=== PATIENT | female | born 1965 | race Caucasian/White ===

== ENCOUNTER 2021-01-10 19:50 | Observation (INO) ==
[2021-01-11] MEDS ORDERED: Naloxone 0.4 MG/ML INJ IVP PRN (01:13)
[2021-01-11] MEDS ORDERED: *HR* OxyCODONE Immed Rel 5 MG TABLET PO PRN (01:13)
[2021-01-11] MEDS ORDERED: *HR* Promethazine 25 MG/ML VIAL IM PRN (01:13)
[2021-01-11] MEDS ORDERED: Melatonin 3 MG TABLET PO PRN (01:13)
[2021-01-11] MEDS ORDERED: Acetaminophen 325 MG TABLET PO PRN (01:13)
[2021-01-11] MEDS ORDERED: Ondansetron 4 MG/2 ML VIAL IVP PRN (01:13)
[2021-01-11] MEDS ORDERED: Ringers Solution, Lactated 1,000 ML IVC SCH ×2 (01:15→08:45)
[2021-01-11] MEDS ORDERED: Perflutren Lipid Microsphere 1.3 ML in 0.9 % Sodium Chloride 8.7 ML IVP PRN (01:16)
[2021-01-11 01:54] LABS: Basophils # 0.1 K/mcL (0.0-0.2); Basophils % 0.6 %; Eosinophils # 0.1 K/mcL (0.0-0.6); Eosinophils % 0.3 %; Hematocrit 35.5 % (35.3-44.9); Hemoglobin 11.8 g/dL (11.5-15.4); Immature Granulocytes % 0.8 % (0-4); Lymphocytes # 1.6 K/mcL (0.6-4.6); Lymphocytes % 10.1 %; Mean Corpuscular HGB Conc 33.2 g/dL (31.6-35.5); Mean Corpuscular Volume 87.2 fL (83.0-100.0); Mean Platelet Volume 9.1 fL (9.4-12.4); Neutrophils # 13.2 K/mcL (1.6-8.9); Platelet Count 478 K/mcL (140-400); Red Blood Count 4.07 M/mcL (3.82-4.97); Red Cell Distribution Width 14.1 % (11.5-14.5); Segmented Neutrophils % 82.2 %; White Blood Count 16.1 K/mcL (4.3-11.1)
[2021-01-11 02:15] LABS: Alanine Aminotransferase 7 Units/L (7-52); Albumin 4.2 g/dL (3.5-5.7); Albumin/Globulin Ratio 1.4 (1.1-2.2); Alkaline Phosphatase 107 Units/L (34-104); Aspartate Amino Transferase 15 Units/L (13-39); BUN/Creatinine Ratio 22 (6-26); Bilirubin,Total 0.3 mg/dL (0.3-1.0); Blood Urea Nitrogen 42 mg/dL (6-20); Calcium 8.4 mg/dL (8.6-10.3); Carbon Dioxide 23 mEq/L (23-29); Chloride 92 mEq/L (98-107); Globulin 3.1 g/dL (2.4-3.5); Glucose 104 mg/dL (70-105); Magnesium 3.3 mg/dL (1.6-2.6); Osmolality,Calculated 275 (280-300); Phosphorous 4.2 mg/dL (2.7-4.5); Potassium 2.8 mEq/L (3.5-5.1); Sodium 127 mEq/L (136-145); Total Protein 7.3 g/dL (6.4-8.9); Troponin I < 0.03 ng/mL (< 0.04); eGFR For African Americans 32 (> 60); eGFR For Non-African Americans 27 (> 60)
[2021-01-11] MEDS: *HR* HYDROcodone/Acet 5/325 mg TABLET PO PRN ×2 (07:40→19:27)
[2021-01-11] MEDS ORDERED: 0.9 % Sodium Chloride w KCl 40 MEQ/1,000 ML MLS IVC SCH (08:45)
[2021-01-11 10:14] LABS: Calcium 8.4 mg/dL (8.6-10.3); Potassium 3.1 mEq/L (3.5-5.1)
[2021-01-11] MEDS ORDERED: SUMAtriptan succinate 50 MG TABLET PO PRN (12:47)
[2021-01-11] MEDS ORDERED: Potassium Chloride Elixir 20 MEQ/15 ML UDC PO SCH (13:00)
[2021-01-11] MEDS: Aspirin Enteric Coated 81 MG Tablet PO SCH (14:37)
[2021-01-11] MEDS ORDERED: Octreotide 50 MCG/ML INJ SQ SCH (15:00)
[2021-01-11] MEDS: Ringers Solution, Lactated 1,000 ML IVC SCH (17:04)
[2021-01-11] MEDS: Gabapentin 300 MG CAPSULE PO SCH (19:26)
[2021-01-11] MEDS ORDERED: Mirtazapine 15 MG TABLET PO SCH (21:00)
[2021-01-12] MEDS: Cyclosporine [Restasis] 1 EACH Droperette OP SCH ×2 (02:52→07:31)
[2021-01-12 04:00] LABS: Basophils # 0.1 K/mcL (0.0-0.2); Basophils % 0.7 %; Eosinophils # 0.1 K/mcL (0.0-0.6); Eosinophils % 1.6 %; Hematocrit 30.1 % (35.3-44.9); Immature Granulocytes % 0.9 % (0-4); Lymphocytes # 1.6 K/mcL (0.6-4.6); Lymphocytes % 23.9 %; Mean Corpuscular HGB Conc 31.9 g/dL (31.6-35.5); Mean Corpuscular Hemoglobin 28.7 pg (28.0-33.3); Mean Corpuscular Volume 89.9 fL (83.0-100.0); Mean Platelet Volume 9.2 fL (9.4-12.4); Monocytes # 0.5 K/mcL (0.0-1.3); Monocytes % 7.6 %; Platelet Count 379 K/mcL (140-400); Red Blood Count 3.35 M/mcL (3.82-4.97); Red Cell Distribution Width 14.2 % (11.5-14.5); Segmented Neutrophils % 65.3 %
[2021-01-12 04:06] LABS: Hemoglobin 9.6 g/dL (11.5-15.4); Neutrophils # 4.4 K/mcL (1.6-8.9); White Blood Count 6.8 K/mcL (4.3-11.1)
[2021-01-12 04:14] LABS: Calcium 8.1 mg/dL (8.6-10.3); Potassium 4.4 mEq/L (3.5-5.1)
[2021-01-12] MEDS: Aspirin Enteric Coated 81 MG Tablet PO SCH (07:30)
[2021-01-12] MEDS: Gabapentin 300 MG CAPSULE PO SCH (07:31)
[2021-01-12] MEDS ORDERED: Tiotropium 10 INH DOSE IH ONE (07:31)
[2021-01-12] MEDS: *HR* HYDROcodone/Acet 5/325 mg TABLET PO PRN (07:34)
[2021-01-12] MEDS: Ringers Solution, Lactated 1,000 ML IVC SCH ×2 (07:37)
[2021-01-12] MEDS ORDERED: Famotidine 20 MG TABLET PO SCH (09:00)
[2021-01-12] MEDS ORDERED: Folic Acid 1 MG TABLET PO SCH (09:00)
[2021-01-12] MEDS ORDERED: Cyanocobalamin (B-12) 1,000 MCG TABLET PO SCH (09:00)
[2021-01-12] MEDS ORDERED: Cholecalciferol (D-3) 1,000 UNIT (25MCG) TABLET PO SCH (09:00)
[2021-01-12] MEDS ORDERED: Venlafaxine XR (24 HR) 75 MG CAP.ER.24H PO SCH (09:00)
[2021-01-12] MEDS ORDERED: Tiotropium 10 INH DOSE IH SCH (10:00)
[2021-01-12 12:30] VITALS: BP 107/71; PULSE 64; TEMP 97.5; O2SAT 99
[2021-01-12] MEDS ORDERED: FLU Vac QV 21-22 (6Month+)/PF 0.5 ML SYRINGE IM ONE (14:21)
[2021-01-15] MEDS ORDERED: BUPRENORPHINE TP SCH (09:00)
== END 2021-01-12 15:20 | disposition home or self-care (01) ==
LOC: 3NENU → SUATTDRO 01-11 00:38
PROVIDERS: ADMIT Internal Medicine; ATTEND Internal Medicine

== ENCOUNTER 2021-01-25 18:49 | Inpatient (IN) ==
[2021-01-25] MEDS ORDERED: Naloxone 0.4 MG/ML INJ IVP PRN (23:31)
[2021-01-26] MEDS: 0.9 % Sodium Chloride 1,000 ML IVC SCH ×4 (01:20→22:02)
[2021-01-26 01:56] LABS: Basophils # 0.1 K/mcL (0.0-0.2); Basophils % 0.7 %; Eosinophils # 0.1 K/mcL (0.0-0.6); Eosinophils % 1.4 %; Hematocrit 29.5 % (35.3-44.9); Hemoglobin 9.7 g/dL (11.5-15.4); Immature Granulocytes % 0.8 % (0-4); Lymphocytes # 1.6 K/mcL (0.6-4.6); Lymphocytes % 18.9 %; Mean Corpuscular HGB Conc 32.9 g/dL (31.6-35.5); Mean Corpuscular Hemoglobin 29.3 pg (28.0-33.3); Mean Corpuscular Volume 89.1 fL (83.0-100.0); Mean Platelet Volume 9.3 fL (9.4-12.4); Monocytes # 0.7 K/mcL (0.0-1.3); Neutrophils # 6.1 K/mcL (1.6-8.9); Platelet Count 477 K/mcL (140-400); Red Blood Count 3.31 M/mcL (3.82-4.97); Red Cell Distribution Width 14.4 % (11.5-14.5); Segmented Neutrophils % 70.2 %; White Blood Count 8.7 K/mcL (4.3-11.1)
[2021-01-26 02:18] LABS: Alanine Aminotransferase 4 Units/L (7-52); Albumin 3.5 g/dL (3.5-5.7); Albumin/Globulin Ratio 1.5 (1.1-2.2); Alkaline Phosphatase 83 Units/L (34-104); Aspartate Amino Transferase 10 Units/L (13-39); BUN/Creatinine Ratio 17 (6-26); Bilirubin,Total 0.3 mg/dL (0.3-1.0); Blood Urea Nitrogen 35 mg/dL (6-20); Calcium 7.9 mg/dL (8.6-10.3); Carbon Dioxide 19 mEq/L (23-29); Chloride 101 mEq/L (98-107); Globulin 2.3 g/dL (2.4-3.5); Glucose 88 mg/dL (70-105); Magnesium 2.1 mg/dL (1.6-2.6); Osmolality,Calculated 281 (280-300); Phosphorous 4.8 mg/dL (2.7-4.5); Potassium 2.5 mEq/L (3.5-5.1); Sodium 132 mEq/L (136-145); Total Protein 5.8 g/dL (6.4-8.9); Troponin I < 0.03 ng/mL (< 0.04); eGFR For African Americans 30 (> 60); eGFR For Non-African Americans 24 (> 60)
[2021-01-26] MEDS: Potassium Chloride Elixir 20 MEQ/15 ML UDC PO SCH ×3 (03:33→22:02)
[2021-01-26] MEDS: *HR* Heparin 5,000 UNIT/ML VIAL SQ SCH ×2 (05:03→16:15)
[2021-01-26] MEDS ORDERED: 0.9 % Sodium Chloride 1,000 ML IVC ONE (05:05)
[2021-01-26] MEDS ORDERED: 0.9 % Sodium Chloride 1,000 ML IVC SCH (08:45)
[2021-01-26 09:40] LABS: Calcium 7.6 mg/dL (8.6-10.3)
[2021-01-26] MEDS: Ondansetron 4 MG/2 ML VIAL IVP PRN (16:23)
[2021-01-26] MEDS: Melatonin 3 MG TABLET PO PRN (22:02)
[2021-01-27 01:29] LABS: Mean Corpuscular HGB Conc 31.7 g/dL (31.6-35.5); Mean Corpuscular Hemoglobin 28.6 pg (28.0-33.3); Mean Corpuscular Volume 90.2 fL (83.0-100.0); Mean Platelet Volume 9.2 fL (9.4-12.4); Platelet Count 381 K/mcL (140-400); Red Blood Count 2.66 M/mcL (3.82-4.97); Red Cell Distribution Width 14.5 % (11.5-14.5); White Blood Count 5.6 K/mcL (4.3-11.1)
[2021-01-27 01:30] LABS: Hemoglobin 7.6 g/dL (11.5-15.4)
[2021-01-27 01:52] LABS: Calcium 7.6 mg/dL (8.6-10.3); Potassium 3.5 mEq/L (3.5-5.1)
[2021-01-27] MEDS: *HR* Heparin 5,000 UNIT/ML VIAL SQ SCH ×2 (05:54→17:12)
[2021-01-27] MEDS: Potassium Chloride Elixir 20 MEQ/15 ML UDC PO SCH ×2 (09:01→20:54)
[2021-01-27] MEDS: Ondansetron 4 MG/2 ML VIAL IVP PRN (09:01)
[2021-01-27] MEDS: 0.9 % Sodium Chloride 1,000 ML IVC SCH ×2 (09:05→12:07)
[2021-01-27] MEDS ORDERED: Metoclopramide 10 MG/2 ML VIAL IVP PRN (09:24)
[2021-01-27] MEDS: Gabapentin 100 MG CAPSULE PO SCH ×2 (12:04→20:51)
[2021-01-27] MEDS: Cyanocobalamin (B-12) 1,000 MCG TABLET PO SCH (12:05)
[2021-01-27] MEDS: Folic Acid 1 MG TABLET PO SCH (12:05)
[2021-01-27] MEDS: Cyclosporine [Restasis] 1 EACH Droperette OP SCH ×2 (12:07→20:54)
[2021-01-27] MEDS ORDERED: Ondansetron 4 MG/2 ML VIAL IVP PRN (15:11)
[2021-01-27] MEDS ORDERED: SODIUM CHLORIDE/NAHCO3/KCL/PEG 4,000 ML SOLN.RECON PO ONE (17:00)
[2021-01-27 20:19] LABS: Hematocrit 26.4 % (35.3-44.9); Hemoglobin 8.6 g/dL (11.5-15.4)
[2021-01-27 20:42] LABS: Bilirubin,Indirect 0.1 mg/dL (0.0-1.0); Bilirubin,Total 0.1 mg/dL (0.3-1.0); Iron 88 mcg/dL (50-170); Lactate Dehydrogenase 112 Units/L (140-271)
[2021-01-27] MEDS: Mirtazapine 15 MG TABLET PO SCH (20:52)
[2021-01-27] MEDS: Melatonin 3 MG TABLET PO PRN (20:52)
[2021-01-27 20:59] LABS: Ferritin 202 ng/mL (10-120)
[2021-01-27 21:04] LABS: Folate 9.4 ng/mL (3.0-16.0)
[2021-01-28] MEDS: 0.9 % Sodium Chloride 1,000 ML IVC SCH ×2 (01:43→20:45)
[2021-01-28 05:00] LABS: Basophils % 0.8 %; Eosinophils # 0.1 K/mcL (0.0-0.6); Eosinophils % 2.5 %; Hemoglobin 7.6 g/dL (11.5-15.4); Immature Granulocytes % 0.4 % (0-4); Lymphocytes # 1.2 K/mcL (0.6-4.6); Lymphocytes % 24.4 %; Mean Corpuscular HGB Conc 31.7 g/dL (31.6-35.5); Mean Corpuscular Hemoglobin 28.1 pg (28.0-33.3); Mean Corpuscular Volume 88.9 fL (83.0-100.0); Mean Platelet Volume 9.3 fL (9.4-12.4); Monocytes # 0.4 K/mcL (0.0-1.3); Monocytes % 8.1 %; Neutrophils # 3.1 K/mcL (1.6-8.9); Platelet Count 394 K/mcL (140-400); Red Cell Distribution Width 14.9 % (11.5-14.5); Segmented Neutrophils % 63.8 %; White Blood Count 4.8 K/mcL (4.3-11.1)
[2021-01-28 05:16] LABS: Calcium 7.7 mg/dL (8.6-10.3); Magnesium 1.4 mg/dL (1.6-2.6); Phosphorous 3.2 mg/dL (2.7-4.5); Potassium 2.7 mEq/L (3.5-5.1)
[2021-01-28] MEDS: *HR* Heparin 5,000 UNIT/ML VIAL SQ SCH ×2 (05:35→17:32)
[2021-01-28] MEDS: Octreotide 50 MCG/ML INJ SQ SCH (09:06)
[2021-01-28] MEDS: Cyclosporine [Restasis] 1 EACH Droperette OP SCH ×2 (09:25→20:46)
[2021-01-28] MEDS ORDERED: Lidocaine -MPF 2% 5 ML VIAL ONE (13:37)
[2021-01-28] MEDS: Potassium Chloride Elixir 20 MEQ/15 ML UDC PO SCH ×2 (14:36→20:47)
[2021-01-28] MEDS: Gabapentin 100 MG CAPSULE PO SCH ×2 (14:36→20:44)
[2021-01-28] MEDS: Folic Acid 1 MG TABLET PO SCH (14:36)
[2021-01-28] MEDS: Cholecalciferol (D-3) 1,000 UNIT (25MCG) TABLET PO SCH (14:38)
[2021-01-28] MEDS: Cyanocobalamin (B-12) 1,000 MCG TABLET PO SCH (14:38)
[2021-01-28] MEDS ORDERED: Acetaminophen 325 MG TABLET PO PRN (15:05)
[2021-01-28] MEDS: Melatonin 3 MG TABLET PO PRN (20:44)
[2021-01-28] MEDS: Mirtazapine 15 MG TABLET PO SCH (20:45)
[2021-01-29 02:06] LABS: Hematocrit 25.4 % (35.3-44.9); Hemoglobin 8.3 g/dL (11.5-15.4); Mean Corpuscular HGB Conc 32.7 g/dL (31.6-35.5); Mean Corpuscular Volume 88.8 fL (83.0-100.0); Platelet Count 431 K/mcL (140-400); Red Blood Count 2.86 M/mcL (3.82-4.97); Red Cell Distribution Width 14.8 % (11.5-14.5); White Blood Count 6.1 K/mcL (4.3-11.1)
[2021-01-29 02:37] LABS: Calcium 7.8 mg/dL (8.6-10.3); Potassium 3.5 mEq/L (3.5-5.1)
[2021-01-29] MEDS: *HR* Heparin 5,000 UNIT/ML VIAL SQ SCH ×2 (05:00→18:06)
[2021-01-29] MEDS: Potassium Chloride Elixir 20 MEQ/15 ML UDC PO SCH ×2 (08:19→20:44)
[2021-01-29] MEDS: Folic Acid 1 MG TABLET PO SCH (08:20)
[2021-01-29] MEDS: Cyanocobalamin (B-12) 1,000 MCG TABLET PO SCH (08:20)
[2021-01-29] MEDS: Gabapentin 100 MG CAPSULE PO SCH ×2 (08:20→20:44)
[2021-01-29] MEDS: Cholecalciferol (D-3) 1,000 UNIT (25MCG) TABLET PO SCH (08:20)
[2021-01-29] MEDS: Octreotide 50 MCG/ML INJ SQ SCH (08:21)
[2021-01-29] MEDS: Cyclosporine [Restasis] 1 EACH Droperette OP SCH ×2 (08:22→20:48)
[2021-01-29] MEDS ORDERED: Simethicone 80 MG TAB.CHEW PO PRN (08:28)
[2021-01-29 12:20] LABS: Bilirubin,Urine Negative (Negative); Blood,Urine Negative (Negative); Clarity,Urine Clear (Clear); Color,Urine Light-Yellow (Yellow); Glucose,Urine (UA) Normal (Normal); Hyaline Casts,Urine Few per lpf (None Seen); Ketones,Urine Negative (Negative); Leukocyte Esterase,Urine Negative (Negative); Mucus,Urine Few per lpf (None-Few); Nitrite,Urine Negative (Negative); Protein,Urine 30 mg/dL (Neg-Trace); RBC,Urine 0-3 per hpf (0-3); Specific Gravity,Urine 1.017 (1.010-1.025); Squamous Epithelial Cell,Urine Few per hpf (None-Few); Transitional Epi Cells,Urine Few per hpf (None-Few); Urobilinogen,Urine Normal (Normal); WBC,Urine 0-3 per hpf (0-3)
[2021-01-29] MEDS: Mirtazapine 15 MG TABLET PO SCH (20:44)
[2021-01-29] MEDS: Melatonin 3 MG TABLET PO PRN (20:44)
[2021-01-30] MEDS: *HR* Heparin 5,000 UNIT/ML VIAL SQ SCH (05:22)
[2021-01-30] MEDS: Cyanocobalamin (B-12) 1,000 MCG TABLET PO SCH (07:51)
[2021-01-30] MEDS: Folic Acid 1 MG TABLET PO SCH (07:51)
[2021-01-30] MEDS: Cholecalciferol (D-3) 1,000 UNIT (25MCG) TABLET PO SCH (07:51)
[2021-01-30] MEDS: Gabapentin 100 MG CAPSULE PO SCH (07:51)
[2021-01-30] MEDS: Cyclosporine [Restasis] 1 EACH Droperette OP SCH (07:53)
[2021-01-30] MEDS: Potassium Chloride Elixir 20 MEQ/15 ML UDC PO SCH (07:53)
[2021-01-30] MEDS: Octreotide 50 MCG/ML INJ SQ SCH (07:56)
[2021-01-30 11:00] VITALS: BP 100/65; PULSE 60; TEMP 98.1; O2SAT 96
[2021-01-30 13:12] LABS: Hematocrit 26.1 % (35.3-44.9); Hemoglobin 8.5 g/dL (11.5-15.4)
== END 2021-01-30 14:44 | disposition home or self-care (01) | DRG 422 ==
LOC: 3BNU → SUATTDRO 22:30
PROVIDERS: ADMIT Pharmacist; ATTEND Internal Medicine
PROC: ENDOCBX (2021-01-28 13:10)